=== PATIENT | male | born 1940 | race Two or more races ===

== ENCOUNTER 2017-06-21 05:58 | Day surgery (SDC) | payer MEDICARE, OTHER ==
[~2017-06-21] VITALS: Ht 162.6 cm; Wt 106.6 kg
[2017-06-21 06:30] VITALS: BP 135/74
--- NOTE | 2017-06-21 07:20 | NUR ---
RN OPENING NOTES PT. LEFT ROOM FOR A COLONOSCOPY. PT. LEFT IN MEDICALLY STABLE CONDITION. CONSENT FORMS WERE SIGNED. FAMILY IS AT BESIDE. PT. REPORT FOR ENDORSED BY DARYN MORGAN.
[2017-06-21 08:00] VITALS: BP 110/60
[2017-06-21] MEDS ORDERED: SENN-167 PO (08:56)
[2017-06-21] MEDS ORDERED: GLYB2.5T4 PO (08:56)
[2017-06-21] MEDS ORDERED: ATOR40TA PO (08:56)
[2017-06-21] MEDS ORDERED: FURO-144 PO (08:56)
[2017-06-21] MEDS ORDERED: CLOP75TA15 PO (08:56)
[2017-06-21] MEDS ORDERED: ASPI-1169 PO (08:56)
[2017-06-21] MEDS ORDERED: SITA100T PO (08:56)
[2017-06-21] MEDS ORDERED: IVAB5TAB PO (08:56)
[2017-06-21] MEDS ORDERED: METO25TA3 PO (08:56)
[2017-06-21] MEDS ORDERED: DOCU-141 PO (08:56)
[2017-06-21] MEDS ORDERED: SACU1TAB PO (08:56)
[2017-06-21] MEDS ORDERED: DICL50TA9 PO (08:56)
[2017-06-21 09:45] VITALS: BP 110/60
--- NOTE | 2017-06-21 09:45 | NUR ---
RN NOTES PT. CAME BACK TO SAME ROOM POST COLONOSCOPY. PER REPORT PT. HAS A BIOPSY, DISTAL TRANSVERSE COLON BIOPSY OF COLONIC POLYP. PT. HAS INTERNAL HEMORRHOIDS, AND RECTAL BLEEDING.
--- NOTE | 2017-06-21 11:14 | NUR ---
RN NOTES MRSA CULTURE COLLECTED FROM BOTH NARES. PT. TOLERATED WELL.
--- NOTE | 2017-06-21 11:28 | NUR ---
RN NOTES DISCHARGE PT. LEFT IN MEDICALLY STABLE CONDITION WITH FAMILY ALONG SIDE. DISCHARGE INSTRUCTIONS WITH EDUCATIONS WAS GIVEN AND PT. VERBALIZED UNDERSTANDING. IV AND ID BAND REMOVED WITHOUT COMPLICATIONS. BELONGINGS LIST CHECKED AND SIGNED. DISCHARGE PACKET WAS PROVIDED WITH SIGNED DOCUMENTS. ALL QUESTIONS ANSWERED.
== END 2017-06-21 18:00 | disposition home or self-care (01) ==
LOC: DS 05:58 → UNDOADMIN 06:11 → MED 06:11 → UNDODISIN 11:25 → DS 18:00
PROVIDERS: ATTEND Surgery
DX: R19.4 Change in bowel habit (principal); Z86.010 Personal history of colon polyps; K64.8 Other hemorrhoids; E11.9 Type 2 diabetes mellitus without complications; I10 Essential (primary) hypertension; E66.9 Obesity, unspecified; I25.10 Atherosclerotic heart disease of native coronary artery without angina pectoris; Z95.1 Presence of aortocoronary bypass graft
CPT/HCPCS: 87081-TC; 88305-TC; 88311-TC; J2704; J3490; Z7610